=== PATIENT | female | born 1990 | race Caucasian/White ===

== ENCOUNTER 2018-12-14 19:02 | Observation (INO) | payer MEDICAID, SELFPAY ==
[2018-12-14 19:05] VITALS: BP 136/91; PULSE 116; RESP 18; TEMP 36.7; O2SAT 96
--- NOTE | 2018-12-14 19:15 | ED.GENADUL_ITS ---
Discharge Plan Disposition Patient Disposition: [facility] INPATIENT Condition: Good Discharge Details Chief Complaint: Abd Prob Clinical Impression: Third trimester , contractions Admit Date/Time: 12/14/18 19:13 Admit Provider: Benedicto Garcia Attending Provider: Benedicto Garcia Primary Care Provider: Lamine Ortiz ED Provider: Pierre Espinosa Medical Decision Making IV established and fluids started. Case discussed with OB on-call, Dr. Putnam. Patient accepted to labor and delivery for further evaluation and monitoring. scallop binder [facility] provider notified. HPI General Mode of arrival: ambulatory . Date/Time Provider Initiated Documentation: 12/14/18 19:12 . Limitations to Documentation: no limitations . Information obtained by: patient . HPI Narrative: Patient presents to ED for evaluation of contractions. She is 25+ weeks and developed what she describes as contractions since 1 PM. They are getting stronger and more consistent. She has had no bleeding or discharge. She continues to feel the baby move. She is followed by [facility] but is planning on having the baby here. She presents to ED for evaluation as the contractions are getting worse and not better. Related Data Home Medications Medication Instructions Recorded Confirmed levothyroxine [Synthroid] 50 mcg PO DAILY tab-cap NS 05/24/14 metformin 500 mg PO BID #3 tab-cap NS 05/24/14 multivitamin [Daily Vitamin] 1 ea PO NS 05/24/14 levothyroxine 25 mcg PO DAILY #03/30/17 levothyroxine [Levoxyl] 200 mcg PO DAILY #03/30/17 metformin [Glucophage] 1,000 mg PO BID #03/30/17 sertraline 50 mg PO DAILY #03/30/17 Previous Rx's Medication Instructions Recorded levothyroxine 25 mcg PO DAILY #03/30/17 levothyroxine [Levoxyl] 200 mcg PO DAILY #03/30/17 metformin [Glucophage] 1,000 mg PO BID #03/30/17 sertraline 50 mg PO DAILY #03/30/17 Allergies Allergy/AdvReac Type Severity Reaction Status Date / Time bee venom protein (honey bee) Allergy Mild local Unverified 06/02/18 11:27 swelling/mild hives latex Allergy Unknown Unverified 06/02/18 11:27 escitalopram [From Lexapro] Allergy Hives Unverified 06/02/18 11:27 Sulfa (Sulfonamide AdvReac nausea/dizz Unverified 06/02/18 11:27 Antibiotics) y/headache General Stated Complaint: Abd Prob PINO: 3 Review of Systems Review of Systems As documented in HPI otherwise negative as below. Const: no fever, chills, weakness Resp: no cough, SOB, pleuritic pain CV: no CP, diaphoresis, edema, syncope GI: no abdominal pain, + contractions, no nausea, vomiting, diarrhea Neuro: no headache, numbness, focal weakness, confusion PFSH Medical History Diabetes mellitus (Chronic) Hypothyroid (Chronic) Surgical History H/O cervical spine surgery (Inactive) History of section (Inactive) S/P cholecystectomy (Inactive) Social History Do you feel safe in your relationship?: No Exam Narrative Exam Narrative: Patient appears quite uncomfortable. She is obese. She has a gravid, nontender abdomen. heart tones found at 160. She is neurologically intact. /pelvic exam deferred. Course Vital Signs Temperature 98.1 F 12/14/18 19:05 Pulse 116 H 12/14/18 19:05 Respiratory Rate 18 12/14/18 19:05 Blood Pressure 136/91 H 12/14/18 19:05 Pulse Oximetry 96 12/14/18 19:05 Temperature 98.1 F 12/14/18 19:05 Temperature Source Skin 12/14/18 19:05 Pulse 116 H 12/14/18 19:05 Respiratory Rate 18 12/14/18 19:05 Blood Pressure 136/91 H 12/14/18 19:05 Pulse Oximetry 96 12/14/18 19:05 Oxygen Delivery Method Room Air 12/14/18 19:05 Oxygen Flow Rate 0 12/14/18 19:05
[2018-12-14] MEDS: Normal Saline 1,000 ML 200 ML IV (19:48)
[2018-12-14] MEDS: Normal Saline 500 ML IV (20:50)
[2018-12-14 21:46] LABS: HCT 37.4 % (36.0-46.0); HGB 12.3 g/dL (12.0-15.5); Mean Corp. HGB Concentration 32.9 g/dL (32.0-36.0); Mean Corpuscular Hemoglobin 27.7 pg (27.0-33.0); Mean Corpuscular Volume 84.2 fL (80-95); Mean Platelet Volume 11.3 fL (8.0-11.0); Platelet Count 319 x1000/uL (130-400); RBC 4.44 m/cumm (4.00-5.20); White Blood Cell Count 12.43 k/cumm (4.4-10.8)
== END 2018-12-14 22:19 | disposition home or self-care (01) ==
LOC: ER 19:17 → OBS 19:25
PROVIDERS: Admitting Provider Family Medicine; Emergency Provider Emergency Medicine; PCP Family Medicine; Visit Provider Family Medicine
DX: O60.02 Preterm labor without delivery, second trimester (principal); E86.0 Dehydration; Z3A.24 24 weeks gestation of pregnancy
CPT/HCPCS: 36415; 85027; 99285; 59025; 99284; G0378

== ENCOUNTER 2019-02-04 01:51 | Observation (INO) | payer MEDICAID, SELFPAY ==
[2019-02-04] MEDS: Normal Saline 500 ML IV (02:30)
[2019-02-04] MEDS: Betamet Acet/Betamet Na Ph Inj. 30 MG/5 ML 12 MG IM (02:38)
[2019-02-04] MEDS: Penicillin G POT. 5,000,000 UNITS in Normal Saline 100 ML 200 UNITS IVPB (03:00)
[2019-02-04] MEDS: NIFEdipine 10 MG CAP PO (03:10)
--- NOTE | 2019-02-04 03:22 | W.PM.HP.N ---
History of Present Illness 29 yo at 32 2/7 weeks other problems: insulin dependent - fair control hypothyroid tonight - strong reg uterine ctx no uti, fever, pain, n/v/d on birthing unit ctx q2-3 mod on monitor cat 1 fht good vitals fs 124 cvx - closed, effaced, ~1 cm long, vtx engaged, dark bloody show on exam glove Ass: reg ctx with cervical change. Delivery not imminent maternal and wellbeing transfer reasonable and optimal plan: iv started, bolus given 12 mg celestone given nifedepine 10mg po given pen g 5,000,000 units started case d/w [facility] [place] - their unit is full case d/w [facility] - Dr. Maki accepted and supported above treatment plans Carlos and her partner aware of benefits from further care near NICU - she is at risk for delivery - she signed consent form efforts to page (system may be down) and call Dr. Putnam unsuccessful - did leave message Report given to [facility], Ambulance - RN will accompany patient along with EMT and rear load truck driver. PFSH Social History Do you feel safe at home: Yes Do you feel safe in your relationship?: Yes Meds Home Medications Medication Instructions Recorded Confirmed Type levothyroxine [Synthroid] 50 mcg PO DAILY tab-cap NS 05/24/14 History metformin 500 mg PO BID #3 tab-cap NS 05/24/14 History multivitamin [Daily Vitamin] 1 ea PO NS 05/24/14 History levothyroxine 25 mcg PO DAILY #03/30/17 Rx levothyroxine [Levoxyl] 200 mcg PO DAILY #03/30/17 Rx metformin [Glucophage] 1,000 mg PO BID #20 03/30/17 Rx sertraline 50 mg PO DAILY #03/30/17 Rx Allergies Allergy/AdvReac Type Severity Reaction Status Date / Time bee venom protein (honey bee) Allergy Mild local Unverified 06/02/18 11:27 swelling/mild hives latex Allergy Unknown Unverified 06/02/18 11:27 escitalopram [From Lexapro] Allergy Hives Unverified 06/02/18 11:27 Sulfa (Sulfonamide AdvReac nausea/dizz Unverified 06/02/18 11:27 Antibiotics) y/headache
--- NOTE | 2019-02-04 03:25 | HPE_ITS ---
History of Present Illness 29 yo at 32 2/7 weeks other problems: insulin dependent - fair control hypothyroid tonight - strong reg uterine ctx no uti, fever, pain, n/v/d on birthing unit ctx q2-3 mod on monitor cat 1 fht good vitals fs 124 cvx - closed, effaced, ~1 cm long, vtx engaged, dark bloody show on exam glove Ass: reg ctx with cervical change. Delivery not imminent maternal and wellbeing transfer reasonable and optimal plan: iv started, bolus given 12 mg celestone given nifedepine 10mg po given pen g 5,000,000 units started case d/w [facility] [place] - their unit is full case d/w [facility] - Dr. Maki accepted and supported above treatment plans Carlos and her partner aware of benefits from further care near NICU - she is at risk for delivery - she signed consent form efforts to page (system may be down) and call Dr. Putnam unsuccessful - did leave message Report given to [facility], Ambulance - RN will accompany patient along with EMT and catering truck driver. PFSH Social History Do you feel safe at home: Yes Do you feel safe in your relationship?: Yes Meds Home Medications Medication Instructions Recorded Confirmed Type levothyroxine [Synthroid] 50 mcg PO DAILY tab-cap NS 05/24/14 History metformin 500 mg PO BID #3 tab-cap NS 05/24/14 History multivitamin [Daily Vitamin] 1 ea PO NS 05/24/14 History levothyroxine 25 mcg PO DAILY #03/30/17 Rx levothyroxine [Levoxyl] 200 mcg PO DAILY #03/30/17 Rx metformin [Glucophage] 1,000 mg PO BID #20 03/30/17 Rx sertraline 50 mg PO DAILY #03/30/17 Rx Allergies Allergy/AdvReac Type Severity Reaction Status Date / Time bee venom protein (honey bee) Allergy Mild local Unverified 06/02/18 11:27 swelling/mild hives latex Allergy Unknown Unverified 06/02/18 11:27 escitalopram [From Lexapro] Allergy Hives Unverified 06/02/18 11:27 Sulfa (Sulfonamide AdvReac nausea/dizz Unverified 06/02/18 11:27 Antibiotics) y/headache
[2019-02-04 06:03] LABS: ROM Plus Positive
== END 2019-02-04 03:20 | disposition short-term general hospital (02) ==
LOC: OBS 02:05
PROVIDERS: Admitting Provider Family Medicine; PCP Family Medicine; Visit Provider Family Medicine
DX: O60.03 Preterm labor without delivery, third trimester (principal); Z3A.32 32 weeks gestation of pregnancy; O24.414 Gestational diabetes mellitus in pregnancy, insulin controlled; Z79.4 Long term (current) use of insulin; O99.283 Endocrine, nutritional and metabolic diseases complicating pregnancy, third trimester; E03.9 Hypothyroidism, unspecified; Z36.85 Encounter for antenatal screening for Streptococcus B
CPT/HCPCS: 84112; 99219; 87081; J0702; J2540